=== PATIENT | male | born 1970 | race Caucasian/White ===

== ENCOUNTER → 2016-07-05 | Outpatient (CLI) | payer BC ==
[~2016-07-05] MED LIST: COLE5GRA PO; FLUO20CA35 PO; GADAVIST IV PRN; GLUCAGON FOR INJ 1 MG VIAL ONE; LISD1CAP2 PO; LISI-794 PO; NURSING VERBAL MED ORDER ONE; RMCI
--- NOTE | 2016-07-05 12:00 | DIAGNOSTIC IMAGING REPORT ---
MR ENTEROGRAPHY CLINICAL HISTORY: Crohn's disease. Ileal stenosis. COMPARISON STUDY: Abdominal CT dated 03/21/2013. TECHNIQUE: MR enterography is performed utilizing various T1 and T2-weighted sequences in the axial and coronal planes. Contrast-enhanced sequences are acquired following the IV administration of 9 cc of Gadavist. Dynamic imaging is performed on an [employer] independent workstation. Subtraction imaging was utilized. FINDINGS: Lower chest: The lung bases are clear as imaged. No pleural effusion is seen. The heart is normal in size. Liver: The liver is normal in size, contour, and signal intensity. There is no evidence of hepatic lesion. No intrahepatic biliary ductal dilatation is seen. Gallbladder: Small gallstones are suspected. The gallbladder is otherwise normal as imaged. Spleen: The spleen is mildly enlarged, measuring 13.6 cm in length. The spleen is normal in contour and signal intensity. Pancreas: Normal as visualized. Adrenal glands: Unremarkable. Kidneys: The kidneys are normal in size and without hydronephrosis. Abdominal aorta: Normal in course and caliber. Bowel: There are postoperative changes from distal ileal resection with ileocolic anastomosis. Moderate colonic fecal retention is observed. There is no evidence of bowel obstruction. No thick-walled or hyperemic small bowel loops are identified. There is no clear evidence of stricture or fistula formation, although the ileocolic anastomosis is not well assessed. Normal peristalsing bowel is seen on the dynamic images. Peritoneum: There is no abdominal ascites. No organized fluid collection is suggested. Lymphadenopathy: None. Pelvic viscera: The bladder, prostate, and seminal vesicles are normal as visualized. Skeletal structures: Normal marrow signal intensity is preserved throughout the visualized bony structures. IMPRESSION: 1. There are postoperative changes from distal ileal resection with ileocolic anastomosis. No bowel obstruction is seen. 2. There is no MRI evidence of active Crohn's disease at the time of examination. 3. There is moderate colonic fecal retention. 4. There is no clear MRI evidence of stricture or fistula formation, although the ileocolic anastomosis is not well assessed. No fluid collection is seen. 5. Cholelithiasis. Dictated: 07/05/2016 11:06 AM Transcribed: 07/05/2016 12:00 PM Jake Electronically signed by: Francisco J Sweeney M.D. 07/05/2016 12:10 PM Dictated Date/Time: 07/05/2016 11:06 AM
== END | disposition home or self-care (01) ==
LOC: C.MRI 08:28
PROVIDERS: ATTEND Registered Nurse
DX: K56.69 Other intestinal obstruction (principal)

== ENCOUNTER → 2016-11-24 | Outpatient (CLI) | payer BC ==
[~2016-11-24] MED LIST changes: -GADAVIST IV PRN; -GLUCAGON FOR INJ 1 MG VIAL ONE; -NURSING VERBAL MED ORDER ONE
[2016-11-24 12:18] LABS: COMPLETE YES; EOS % 0.3 %; HEMATOCRIT 41.4 % (42-52); IG% 0.4 %; LYMPH % 18.1 %; LYMPH ABS # 1.91 K/uL (1.2-3.4); MEAN CORPUSCULAR HEMOGLOBIN 31.3 pg (25-34); MEAN CORPUSCULAR HGB CONC 34.8 g/dl (32-36); MEAN PLATELET VOLUME 9.3 fL (7.4-10.4); MONO % 4.7 %; NEUT % 76.5 %; PLATELET COUNT 181 K/uL (130-400); WHITE BLOOD COUNT 10.56 K/uL (4.8-10.8)
[2016-11-24 12:40] LABS: ALT/SGPT 35 U/L (12-78); BLOOD UREA NITROGEN 10 mg/dl (7-18); BUN/CREATININE RATIO 9.4 (10-20); C-REACTIVE PROTEIN < 0.29 mg/dl (0-0.29); CALCIUM 9.5 mg/dl (8.5-10.1); CARBON DIOXIDE 30 mmol/L (21-32); CHLORIDE 103 mmol/L (98-107); CHOLESTEROL 233 mg/dl (0-200); GLUCOSE 123 mg/dl (70-99); POTASSIUM 3.4 mmol/L (3.5-5.1); SODIUM 138 mmol/L (136-145); TRIGLYCERIDES 214 mg/dl (0-150); VERY LOW DENSITY LIPOPROT CALC 43 mg/dl
[2016-11-24 12:43] LABS: ALB/GLOB RATIO 1.2 (0.9-2); ALKALINE PHOSPHATASE 64 U/L (45-117); AST/SGOT 18 U/L (15-37); CHOLESTEROL/HDL RATIO 4.2; HDL CHOLESTEROL 56 mg/dl; LDL CHOLESTEROL CALCULATED 134 mg/dl
== END | disposition home or self-care (01) ==
LOC: C.LABBFT 08:29
PROVIDERS: ATTEND Registered Nurse
DX: K50.90 Crohn's disease, unspecified, without complications (principal); K56.69 Other intestinal obstruction; E78.5 Hyperlipidemia, unspecified

== ENCOUNTER → 2017-12-08 | Outpatient (CLI) | payer BC ==
[~2017-12-08] MED LIST changes: +AMLO10TA3 PO; +COLE1TAB PO; -COLE5GRA PO; -LISD1CAP2 PO; +LISD20CA PO
[2017-12-08 12:39] LABS: ALKALINE PHOSPHATASE 69 U/L (45-117); ALT/SGPT 43 U/L (12-78); AST/SGOT 20 U/L (15-37); BASO % 0.3 %; BASO ABS # 0.02 K/uL (0-0.2); BLOOD UREA NITROGEN 11 mg/dl (7-18); CALCIUM 8.7 mg/dl (8.5-10.1); CARBON DIOXIDE 28 mmol/L (21-32); CREATININE 1.12 mg/dl (0.60-1.40); EOS ABS # 0.08 K/uL (0-0.5); GLUCOSE 94 mg/dl (70-99); HEMATOCRIT 39.2 % (42-52); HEMOGLOBIN 13.9 g/dL (14.0-18.0); IG# 0.02 K/uL (0.00-0.02); LYMPH % 25.5 %; LYMPH ABS # 1.97 K/uL (1.2-3.4); MEAN CELL VOLUME 87.7 fL (80-100); MEAN CORPUSCULAR HEMOGLOBIN 31.1 pg (25-34); MEAN CORPUSCULAR HGB CONC 35.5 g/dl (32-36); MEAN PLATELET VOLUME 9.3 fL (7.4-10.4); MONO % 6.3 %; MONO ABS # 0.49 K/uL (0.11-0.59); NEUT % 66.6 %; NEUT ABS # 5.14 K/uL (1.4-6.5); PLATELET COUNT 238 K/uL (130-400); POTASSIUM 3.1 mmol/L (3.5-5.1); RED CELL DISTRIBUTION WIDTH CV 13.6 % (11.5-14.5); RED CELL DISTRIBUTION WIDTH SD 43.1 fL (36.4-46.3); SODIUM 137 mmol/L (136-145); TOTAL PROTEIN 7.5 gm/dl (6.4-8.2); TRANSFERRIN 327 mg/dl (200-360); WHITE BLOOD COUNT 7.72 K/uL (4.8-10.8)
== END | disposition home or self-care (01) ==
LOC: C.LABBFT 08:48
PROVIDERS: ATTEND Registered Nurse
DX: E55.9 Vitamin D deficiency, unspecified (principal); K50.90 Crohn's disease, unspecified, without complications; K56.699 Other intestinal obstruction unspecified as to partial versus complete obstruction; R11.2 Nausea with vomiting, unspecified

== ENCOUNTER → 2017-12-19 | Outpatient (CLI) | payer BC ==
[~2017-12-19] MED LIST changes: +AMLO5TAB3 PO; +FLUO40CA8 PO; +LISD50CA PO; +VIT D PO
--- NOTE | 2017-12-19 12:49 | DIAGNOSTIC IMAGING REPORT ---
GI W/AIR SMALL BOWEL ROUTINE CLINICAL HISTORY: CROHNS, NAUSEA, VOMITINGnausea. Vomiting. COMPARISON STUDY: MR enterography 07/05/2016 FLUOROSCOPY TIME: 3.5 minutes. FINDINGS: Patient initiates swallowing function well. The esophagus is normal in course and caliber. The gastroesophageal junction is normal. Size configuration stomach are normal. Duodenal sweep is unremarkable. Mucosal pattern of the proximal to mid small bowel is unremarkable. The right lower quadrant demonstrates a moderate distention of a loop of small bowel with evidence for an annular appearing lesion and/or edematous wall type lesion proximal to the cecum. This measures approximately 10 cm in length. There is delayed contrast flow to the a sending colon. IMPRESSION: 1. Atypical wall edematous change of the distal ileum immediately proximal to the ileocecal valve. 2. This is some characteristics of a annular lesion proximally with mild distention of a loop of small bowel proximal to this site. 3. Diagnostic considerations include negative inflammatory process and/or the less likely possibility of a neoplastic process. 4. Endoscopic follow-up is suggested. The above report was generated using voice recognition software. It may contain grammatical, syntax or spelling errors. Electronically signed by: Red Hernandez M.D. 12/19/2017 12:48 PM Dictated Date/Time: 12/19/2017 12:44 PM
== END | disposition home or self-care (01) ==
LOC: C.RAD 09:15
PROVIDERS: ATTEND Registered Nurse
DX: K50.90 Crohn's disease, unspecified, without complications (principal); K56.699 Other intestinal obstruction unspecified as to partial versus complete obstruction; R11.2 Nausea with vomiting, unspecified

== ENCOUNTER → 2017-12-26 | Day surgery (SDC) | payer BC ==
[2017-12-21 10:07] VITALS: BMI 28.0
[~2017-12-26] VITALS: Ht 170.2 cm; Wt 81.8 kg
[~2017-12-26] MED LIST changes: -AMLO10TA3 PO; -FLUO20CA35 PO; -LISD20CA PO; +PROPOFOL IV EMULSION 10 MG/ML 20 ML VIAL ONE; +SODIUM CHLORIDE 0.9% 500ML 500 ML IV ONE
[2017-12-26 10:19] VITALS: Ht 170.2 cm; Wt 81.8 kg
--- NOTE | 2017-12-26 10:27 | Endo History and Physical ---
History & Physical Date of Service: Dec 26, 2017. Chief Complaint: CROHN'S DISEASE Referring Physician: History of Present Illness 47 yo CM who presents for Colonoscopy secondary to Crohn's Disease. Past Medical History Gastrointestinal Disorder, Anxiety, Depression Past Surgical History Hx Cardiac Surgery: No Hx Internal Defibrillator: No Hx Pacemaker: No Hx Abdominal Surgery: Yes (COLON RESECTION, APPY) Hx of Implantable Prosthesis: No Hx Post-Op Nausea and Vomiting: No Hx Cancer Surgery: No Hx Thoracic Surgery: No Hx Orthopedic: Yes (LEFT BICEP REPAIR, RIGHT PECTORAL REPAIR) Hx Urinary Tract Surgery: No Family History None Social History Smoking Status: Never Smoker Hx Substance Use: No Hx Alcohol Use: No Allergies Coded Allergies: Niacin (Verified Adverse Reaction, Mild, FLUSHED;ITCHING;TACHYCARDIA, 12/21) Current Medications Reported Home Medications Medications Dose Route/Sig Max Daily Dose Days Date Category [Vit D] 2,000 Units PO 12/26/17 Reported Vyvanse (Lisdexamfetamine Dimesylate) 50 Mg Cap 50 Mg PO DAILY 12/21/17 Reported Norvasc (Amlodipine Besylate) 5 Mg Tab 5 Mg PO QPM 12/21/17 Reported Prozac (Fluoxetine HCl) 40 Mg Cap 40 Mg PO QAM 12/21/17 Reported Colestid (Colestipol Hcl) 1 Gm Tab 2 Gm PO DAILY 10/10/17 Reported Zestril (Lisinopril) 40 Mg Tab 40 Mg PO QAM 04/19/16 Reported Remicade (Infliximab) 100 Mg/10 Ml Inj [id number] 03/07/13 Reported Vital Signs Weight (Kilograms): 81.82 Height (Feet): 5 Height (Inches): 7 Physical Exam General Appearance: WD/WN, no apparent distress Respiratory/Chest: Auscultation: breath sounds normal Cardiovascular: Heart Auscultation: RRR Abdomen: Bowel Sounds: normal Inspection & Palpation: soft, non-distended, no tenderness, guarding & rebound Assessment and Plan Assessment: 47 yo CM who presents for Colonoscopy secondary to Crohn's Disease. Plan: Proceed with colonoscopy.
--- NOTE | 2017-12-26 11:53 | Discharge Instructions ---
Endoscopy Patient Instructions Date / Procedure(s) Performed Dec 26, 2017. Colonoscopy Allergy Information Coded Allergies: Niacin (Verified Adverse Reaction, Mild, FLUSHED;ITCHING;TACHYCARDIA, 12/21) Discharge Date / Findings Dec 26, 2017. Stricture at Anastomosis Internal hemorrhoids Medication Instructions OK to resume all medications today as prescribed Reported Home Medications Medications Dose Route/Sig Max Daily Dose Days Date Category [Vit D] 2,000 Units PO 12/26/17 Reported Vyvanse (Lisdexamfetamine Dimesylate) 50 Mg Cap 50 Mg PO DAILY 12/21/17 Reported Norvasc (Amlodipine Besylate) 5 Mg Tab 5 Mg PO QPM 12/21/17 Reported Prozac (Fluoxetine HCl) 40 Mg Cap 40 Mg PO QAM 12/21/17 Reported Colestid (Colestipol Hcl) 1 Gm Tab 2 Gm PO DAILY 10/10/17 Reported Zestril (Lisinopril) 40 Mg Tab 40 Mg PO QAM 04/19/16 Reported Remicade (Infliximab) 100 Mg/10 Ml Inj [id number] 03/07/13 Reported Provider Instructions Activity Restrictions - No exercising or heavy lifting for 24 hours. - Do not drink alcohol the day of the procedure. - Do not drive a car or operate machinery until the day after the procedure. - Do not make any important decisions or sign important papers in 24 hours after the procedure. Following Day: - Return to full activity which may include returning to work/school. Diet Start your diet with liquids and light foods (jello, soup, juice, toast). Then eat your usual diet if not nauseated. Treatment For Common After Affects For mild abdominal pain, bloating, or excessive gas: - Rest - Eat lightly - Lie on right side Follow-Up Information Follow-up with as scheduled Anesthesia Information What You Should Know You have had a procedure that required some medicine to reduce anxiety and discomfort. This treatment is called moderate sedation. After receiving the treatment, you may be sleepy, but you will be able to breathe on your own. The effects of the treatment may last for several hours. Follow these instructions along with Activity/Diet recommendations noted above: * Do NOT do anything where dizziness or clumsiness would be dangerous. * Rest quietly at home today, then you can be up and about tomorrow. * Have a responsible person stay with you the rest of today. * You may have had an I.V. today. If so, you may take the dressing off later today. Recommendations Call your doctor if: * Trouble breathing * Continuous vomiting for more than 24 hours * Temperature above 101 degrees * Severe abdominal pain or bloating * Pain not relieved by pain medicine ordered * There is increased drainage or redness from any incision * A large amount of rectal bleeding greater than 2-3 tablespoons. (If you had a polyp/s removed or have hemorrhoids, a small amount of blood - from the rectum is to be expected.) * You have any unanswered questions or concerns. IN THE EVENT OF A SERIOUS EMERGENCY, GO TO THE NEAREST EMERGENCY ROOM Your discharge instructions were prepared by provider Calixto Middleton. Patient Instructions Signature Page Ajay King Patient (or Guardian) Signature/Date: I have read and understand the instructions given to me by my caregivers. Caregiver/RN/Doctor Signature/Date: The above-named patient and/or guardian has received patient instructions on this date. + Original Patient Signature Page (only) stays with chart. Please make copy for patient.
[2017-12-26 11:58] VITALS: BP 142/81; PULSE 67; O2SAT 99
--- NOTE | 2017-12-26 12:14 | Anesthesiology Progress Note ---
Anesthesia Post Op Note Date & Time Dec 26, 2017 at 12:14 Vital Signs Pain Intensity: 0 Vital Signs Past 12 Hours Date Time Temp Pulse Resp B/P (MAP) Pulse Ox O2 Delivery O2 Flow Rate FiO2 12/26/17 11:58 67 18 142/81 (101) 99 Room Air 12/26/17 11:44 61 18 128/71 (90) 98 Room Air 12/26/17 11:28 58 18 131/67 (88) 98 Room Air 12/26/17 10:26 36.5 58 18 150/90 (110) 98 Room Air Notes Mental Status: alert / awake / arousable, participated in evaluation Pt Amnestic to Procedure: Yes Nausea / Vomiting: adequately controlled Pain: adequately controlled Airway Patency, RR, SpO2: stable & adequate BP & HR: stable & adequate Hydration State: stable & adequate Anesthetic Complications: no major complications apparent
--- NOTE | 2017-12-26 12:32 | GI REPORT ---
Patient Name: Ajay King Procedure Date: 12/26/2017 10:59 AM Date of : 1970 Admit Type: Outpatient Age: 47 Gender: Male Attending MD: Calixto Middleton DO Procedure: Colonoscopy Providers: Calixto Middleton DO Referring MD: Anthony Barcenas Indications: Abnormal CT of the GI tract, Disease activity assessment of Crohn's disease of the small bowel Medicines: Monitored Anesthesia Care Complications: No immediate complications. Estimated Blood Loss: Estimated blood loss: none. Procedure: Pre-Anesthesia Assessment: - Prior to the procedure, a History and Physical was performed, and patient medications and allergies were reviewed. The patient's tolerance of previous anesthesia was also reviewed. The risks and benefits of the procedure and the sedation options and risks were discussed with the patient. All questions were answered, and informed consent was obtained. Prior Anticoagulants: The patient has taken no previous anticoagulant or antiplatelet agents. ASA Grade Assessment: II - A patient with mild systemic disease. After reviewing the risks and benefits, the patient was deemed in satisfactory condition to undergo the procedure. After I obtained informed consent, the scope was passed under direct vision. Throughout the procedure, the patient's blood pressure, pulse, and oxygen saturations were monitored continuously. The scope was introduced through the anus and advanced to the ileocolonic anastomosis. The colonoscopy was performed without difficulty. The patient tolerated the procedure well. The quality of the bowel preparation was good. The rectum was photographed. Findings: There was evidence of a prior end-to-side ileo-colonic anastomosis in the ascending colon. This was non-patent and was characterized by severe stenosis and ulceration. The anastomosis was not traversed. Non-bleeding internal hemorrhoids were found during retroflexion. The hemorrhoids were small. Impression: - Non-patent end-to-side ileo-colonic anastomosis, characterized by ulceration and severe stenosis. - Non-bleeding internal hemorrhoids. - No specimens collected. Recommendation: - Resume previous diet. - Continue present medications. - Refer to a colo-rectal surgeon at appointment to be scheduled. - Repeat colonoscopy in 1 year for surveillance. - Return to GI office as previously scheduled. Calixto Middleton DO 12/26/2017 12:31:24 PM This report has been signed electronically. Note Initiated On: 12/26/2017 10:59 AM Number of Addenda: 0 I attest to the content of the Intraoperative Record and orders documented therein, exceptions below {[id number]}
== END | disposition home or self-care (01) ==
LOC: C.GI 09:58
PROVIDERS: ATTEND Internal Medicine
DX: K50.90 Crohn's disease, unspecified, without complications (principal); K63.3 Ulcer of intestine; K64.8 Other hemorrhoids; F41.9 Anxiety disorder, unspecified; F32.9 Major depressive disorder, single episode, unspecified; Z88.8 Allergy status to other drugs, medicaments and biological substances; Z79.899 Other long term (current) drug therapy